=== PATIENT | male | born 1970 | race Caucasian/White ===

== ENCOUNTER 2019-03-10 14:33 | Emergency (ER) | payer MEDICAID, OTHER ==
[2019-03-10] MEDS ORDERED: Acetaminophen TAB* 325 MG PO ONE (15:04)
--- NOTE | 2019-03-10 15:27 | ED ---
Laceration/Wound HPI - HPI Summary HPI Summary: This patient is a 49-year-old male with a history of bipolar disorder and anxiety presenting to the ED after self-harm behavior. He endorses a laceration to the left antecubital fossa attempting to hit an artery. There was copious amounts of blood loss and patient was found by the alf guards and brought to ED. He states this is happened in the past in which he had an arterial bleed which required immediate flight transfer to [facility] for vascular surgery. He states the same thing happened today and he attempted to commit suicide by cutting the same artery. Bandage is applied prior to arrival. Bleeding is well controlled on arrival. Pt asking for ativan and states he takes 2mg ativan three times daily. Hx of self harm in same area as well as contralateral arm. - History of Current Complaint Stated Complaint: LAC ON LEFT ARM PER EMS Time Seen by Provider: 03/10/19 14:34 Hx Obtained From: Patient Mechanism of Injury: Sharp/Blunt Trauma Onset/Duration: Sudden Onset Aggravating: Movement Alleviating: Compression Timing: Constant Onset Severity: Moderate Current Severity: Moderate Pain Intensity: 5 Pain Scale Used: 0-10 Numeric Associated Signs & Symptoms: Negative - Allergy/Home Medications Allergies/Adverse Reactions: Allergies Allergy/AdvReac Type Severity Reaction Status Date / Time haloperidol [From Haldol] Allergy Shortness Verified 03/10/19 14:42 of Breath PMH/Surg Hx/FS Hx/Imm Hx Previously Healthy: Yes - Immunization History Date of Tetanus Vaccine: 2011 Hx Pertussis Vaccination: No Immunizations Up to Date: Yes Infectious Disease History: No Infectious Disease History: Denies: Traveled Outside the [place] in Last 30 Days - Social History Occupation: Employed Full-time Lives: Alone - alf Alcohol Use: None Hx Substance Use: No Substance Use Type: Reports: None Hx Tobacco Use: Yes Smoking Status (MU): Former Smoker Review of Systems Negative: Fever, Chills, Fatigue, Skin Diaphoresis Negative: Palpitations, Chest Pain Negative: Abdominal Pain, Vomiting, Diarrhea, Nausea Genitourinary: Negative Positive: no symptoms reported, see HPI Negative: Arthralgia, Myalgia Positive: Other - laceration Neurological: Negative All Other Systems Reviewed And Are Negative: Yes Physical Exam Triage Information Reviewed: Yes Vital Signs On Initial Exam: Initial Vitals Temp Pulse Resp BP Pulse Ox 98.6 F 86 18 105/81 100 03/10/19 14:40 03/10/19 14:40 03/10/19 14:40 03/10/19 14:40 03/10/19 14:40 Vital Signs Reviewed: Yes Appearance: Positive: Well-Appearing, Well-Nourished Skin: Positive: Warm, Skin Color Reflects Adequate Perfusion, Other - laceration Head/Face: Positive: Normal Head/Face Inspection Eyes: Positive: EOMI, Conjunctiva Clear Neck: Positive: Supple, No Lymphadenopathy Respiratory/Lung Sounds: Positive: Clear to Auscultation, Breath Sounds Present Cardiovascular: Positive: RRR, Pulses are Symmetrical in both Upper and Lower Extremities Musculoskeletal: Positive: Strength/ROM Intact Neurological: Positive: Sensory/Motor Intact, Alert, Oriented to Person Place, Time, Speech Normal Psychiatric: Positive: Affect/Mood Appropriate AVPU Assessment: Alert Procedures - Sedation Patient Received Moderate/Deep Sedation with Procedure: No - Laceration/Wound Repair 1 Location: upper extremity Description: Linear Anesthesia: 1.0% Length, Depth and Shape: 4.5cm Betadine Prep?: No Irrigated w/ Saline (ccs): 60 Laceration/Wound Explored: clean Closure: Skin Adhesive Suture Type: Prolene Number of Sutures: 8 Layer Closure?: No Sterile Dressing Applied?: No Diagnostics - Vital Signs Vital Signs Temp Pulse Resp BP Pulse Ox 03/10/19 14:40 98.6 F 86 18 105/81 100 - Laboratory Lab Statement: Any lab studies that have been ordered have been reviewed, and results considered in the medical decision making process. Laceration Repair Course/Dx - Course Course Of Treatment: Physical examination, patient appears well. He is nondiaphoretic and nontoxic appearing. He does not appear to be pale. Laceration is approximately 4.5 cm in length and is fairly superficial, with no evidence of arterial bleed. Cleanse wound thoroughly. Lidocaine without epi used as local anesthetic with good effect. 8, 4-0 Prolene sutures placed using simple interrupted technique. Gauze wrapped. Patient was given Tylenol 650 mg. Suture removal in 7 days. - Differential Dx Differental Diagnoses: Laceration - forearm - Clinical Impression Provider Diagnoses: Laceration Discharge ED - Sign-Out/Discharge Documenting (check all that apply): Patient Departure - Discharge Plan Condition: Stable Disposition: HOME Patient Education Materials: Care For Your Stitches (ED), Laceration (ED) Referrals: Mamadou ZAPATA,Thuan Abrams [Primary Care Provider] - Additional Instructions: Suture removal in 7 days Keep the area covered with gauze Cleanse wound thoroughly daily - Billing Disposition and Condition Condition: STABLE Disposition: Home - Attestation Statements Provider Attestation: I was available for consult. This patient was seen by the BRANDI. The patient was not presented to, seen by, or examined by me. Cooper Mancera MD
[2019-03-10 15:46] VITALS: BP 110/72
== END 2019-03-10 15:44 | disposition home or self-care (01) ==
LOC: ED 14:33
DX: S41.112A Laceration without foreign body of left upper arm, initial encounter (principal); X78.9XXA Intentional self-harm by unspecified sharp object, initial encounter; Y92.9 Unspecified place or not applicable; F31.9 Bipolar disorder, unspecified; F41.9 Anxiety disorder, unspecified; Z87.891 Personal history of nicotine dependence; Z79.899 Other long term (current) drug therapy; Z88.8 Allergy status to other drugs, medicaments and biological substances
CPT/HCPCS: 12002; 99282; A9270-GY